=== PATIENT | male | born 1970 | race Caucasian/White ===

== ENCOUNTER → 2016-07-09 | Outpatient (REF) | payer OTHER ==
[2016-07-09 11:37] LABS: MEAN CORPUSCULAR HEMOGLOBIN 30.6 pg (27.0-33.0); MEAN CORPUSCULAR HGB CONC 35.2 g/dl (32.0-36.5); MEAN CORPUSCULAR VOLUME 86.9 fl (80.0-96.0); RED CELL DISTRIBUTION WIDTH 13.4 % (11.5-14.5)
[2016-07-09 12:11] LABS: ALBUMIN 3.5 GM/DL (3.2-5.2); ALBUMIN/GLOBULIN RATIO 1.13 (1.00-1.93); ALKALINE PHOSPHATASE 75 U/L (45-117); ALT/SGPT 42 U/L (12-78); ANION GAP 9 MEQ/L (8-16); AST/SGOT 18 U/L (15-37); BILIRUBIN,TOTAL 0.3 MG/DL (0.2-1.0); BLOOD UREA NITROGEN 12 MG/DL (7-18); CALCIUM LEVEL 8.4 MG/DL (8.5-10.1); CARBON DIOXIDE LEVEL 24 MEQ/L (21-32); CHLORIDE LEVEL 103 MEQ/L (98-107); CHOLESTEROL LEVEL 196 MG/DL (<200); CREATININE FOR GFR 0.69 MG/DL (0.70-1.30); GAMMA GLUTAMYLTRANSPEPTIDASE 32 U/L (15-85); GLOMERULAR FILTRATION RATE > 60.0 (>60); GLUCOSE, FASTING 213 MG/DL (70-105); POTASSIUM SERUM 4.6 MEQ/L (3.5-5.1); SODIUM LEVEL 136 MEQ/L (136-145); TOTAL PROTEIN 6.6 GM/DL (6.4-8.2); TRIGLYCERIDES LEVEL 941 MG/DL (<150)
== END ==
LOC: M SFHCCLAY 09:03
PROVIDERS: ATTEND Nurse Practitioner Family
DX: E11.9 Type 2 diabetes mellitus without complications (principal); I10 Essential (primary) hypertension; E78.4 Other hyperlipidemia; E55.9 Vitamin D deficiency, unspecified

== ENCOUNTER → 2016-07-28 | Outpatient (CLI) | payer OTHER ==
--- NOTE | 2016-07-30 10:35 | SLEEPCENT ---
DATE OF STUDY: 07/28/2016 ORDERED BY: Dr. Parsons Nocturnal polysomnography was performed for retitration of pressure therapy in this patient with obstructive sleep apnea syndrome. For testing, the patient was fit with ResMed nasal pillow medium/large sized mask. 11 cm of water pressure was initially applied to the circuit and the lights were extinguished. 7 hours and 26 minutes of data were reviewed. There were 198 minutes of sleep identified. Sleep latency was very prolonged at 185 minutes. Rapid eye movement (REM) sleep was somewhat delayed at 132 minutes. Sleep architecture once established was fair with some fragmentation. There were two REM periods appreciated. Overall sleep efficiency was 45.3%. EKG showed a sinus rhythm with an average heart rate of 62 beats per minute. EEG showed normal waveforms for awake and sleep. Respiratory events were found best palliated with a CPAP at a pressure +13. Significant limb activity persisted throughout the study. There were 4 trains of 30 events with a limb movement arousal index of 10.6. IMPRESSION: 1. Obstructive sleep apnea syndrome (G47.33). 2. Periodic limb movement disorder (G47.6). Limb movement arousal index 10.6. RECOMMENDATION: Nightly use of pressure therapy at 13 cm of water should be sufficient to address the patient's respiratory events. Interventions to reduce he frequency or arousal from limb activity will be needed to optimize the patient's sleep.
== END ==
LOC: M SLEEP 19:40
PROVIDERS: ATTEND Nurse Practitioner Adult Health
DX: G47.33 Obstructive sleep apnea (adult) (pediatric) (principal)

== ENCOUNTER → 2016-11-22 | Outpatient (REF) | payer OTHER ==
[2016-11-22 12:32] LABS: CHOLESTEROL LEVEL 207 MG/DL (<200); TRIGLYCERIDES LEVEL 1611 MG/DL (<150)
== END ==
LOC: M SFHCCLAY 08:46
PROVIDERS: ATTEND Nurse Practitioner Family
DX: E78.4 Other hyperlipidemia (principal); E11.9 Type 2 diabetes mellitus without complications; E55.9 Vitamin D deficiency, unspecified